=== PATIENT | male | born 2000 | race Caucasian/White ===

== ENCOUNTER 2021-07-12 00:58 | Emergency (ER) | payer SELFPAY ==
[~2021-07-12] VITALS: Ht 182.9 cm; Wt 134.0 kg
--- NOTE | 2021-07-12 01:16 | PHYS DOC ---
General Adult HPI: HPI: ".. I ve having severe.. neck spasms.. and upper back pain.. it so bad.. I cant sleep... I ve had this before.. but never this bad.." Patient is a 20 year old male who presents with upper back and neck pain. Patient localized pain to cervical and upper thoracic. Has obvious trapezius spasms. Has limited range motion of his neck because of pain. Has no midline tenderness per se. Patient denies any fever or chills. Patient denies any IV drug use. Patient denies any history of cancer. Patient denies any recent injury. 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 Patient it started yesterday acutely. Patient gives some history of may have slept wrong and developed the start of the spasm. No recent travel. No specific ill contacts. No history immunosuppression. No problems with defecation. No acute problems with urination. Review of Systems: Review of Systems: Constitutional: Denies fever or chills Eyes: Denies change in visual acuity HENT: Denies nasal congestion or sore throat. Complains of severe neck and upper back spasms Respiratory: Denies cough or shortness of breath Cardiovascular: Denies chest pain or edema GI: Denies abdominal pain, nausea, vomiting, bloody stools or diarrhea : Denies dysuria Musculoskeletal: Complains of neck and upper back spasms Integument: Denies rash Neurologic: Denies headache, focal weakness or sensory changes Endocrine: Denies polyuria or polydipsia Lymphatic: Denies swollen glands Psychiatric: Denies depression or anxiety Family History: Family History: Noncontributory to presentation Current Medications: Current Meds: See nursing for home meds Allergies: Allergies: No known drug allergies Physical Exam: PE: Constitutional: in acute distress, non-toxic appearance. [] HENT: Normocephalic, atraumatic, bilateral external ears normal, oropharynx moist, no oral exudates, nose normal. Lara Eyes: PERRLA, EOMI, conjunctiva normal, no discharge. [] Neck: Limited range of motion due to pain, marked cervical trapezius tenderness, muscle spasm , no midline tenderness, no stridor. [] Cardiovascular:Heart rate regular rhythm, no murmur [] Lungs & Thorax: Bilateral breath sounds equal apex auscultation. Some basilar crackles Abdomen: Bowel sounds normal, soft, no tenderness, no masses, no pulsatile masses. Milo obese Skin: Warm, dry, no erythema, no rash. [] Back: Upper mid back tenderness, trapezius muscle spasm, no midline tenderness. No CVA tenderness. [] Extremities: No tenderness, no cyanosis, no clubbing, ROM intact, no edema. Movement of the upper arms causes marked pain in his neck and between knees shoulder blades. Neurologic: Alert and oriented X 3, moves all extremities on request, has distal sensory,, no focal deficits noted. DTRs +2 patella and brachial. Psychologic: Affect anxious, judgement normal, mood normal. [] EKG: EKG: [] Radiology/Procedures: Radiology/Procedures: [address] [address] IMAGING REPORT Signed PATIENT: GENO ANAND ACCOUNT: [id number] : 2000 LOCATION: ER AGE: 20 SEX: M EXAM STATUS: REG ER ORD. PHYSICIAN: JOSE C MILLS MD REASON: Severe neck and upper back pain, dizziness, no trauma PROCEDURE: CT CERVICAL SPINE WO CONTRAST EXAM: Ct Cervical Spine Without Iv Contrast CLINICAL HISTORY: Reason: Severe neck and upper back pain, dizziness, no trauma / Spl. Instructions: / History: COMPARISON: None available. TECHNIQUE: Helical CT of the cervical spine was performed. Axial, coronal and sagittal reformatted images were also performed. PQRS compliance statement - One or more of the following individualized dose reduction techniques were utilized for this study: 1. Automated exposure control 2. Adjustment of the mA and/or kV according to patient size 3. Use of iterative reconstruction technique FINDINGS: No acute fracture or subluxation. 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 Vertebral body heights are preserved. Disc heights are preserved. Straightening of the normal cervical lordosis. No spondylolisthesis. IMPRESSION: No acute cervical spine fracture or subluxation. Electronically signed by: Francis Seth MD (07/12/2021 2:11 AM) [facility] DICTATED AND SIGNED BY: FRANCIS SETH MD DATE: 07/12/21204 CC: JOSE C MILLS MD; PCP,NO ~ [][place] [id number] IMAGING REPORT Signed PATIENT: GENO ANAND ACCOUNT: [id number] : 2000 LOCATION: ER AGE: 20 SEX: M EXAM STATUS: REG ER ORD. PHYSICIAN: JOSE C MILLS MD REASON: Severe neck and upper back pain, dizziness, no trauma PROCEDURE: CT THORACIC SPINE WO CONTRAST CLINICAL HISTORY:Reason: Severe neck and upper back pain, dizziness, no trauma / Spl. Instructions: / History: COMPARISON: None available. TECHNIQUE: Helical CT of the thoracic spine was performed and axial, coronal and sagittal reformatted images were generated. PQRS compliance statement - One or more of the following individualized dose reduction techniques were utilized for this study: 1. Automated exposure control 2. Adjustment of the mA and/or kV according to patient size 3. Use of iterative reconstruction technique FINDINGS: There is normal alignment of the thoracic spine. There is preservation of height of the vertebral bodies with normal bone density. The height of the intervertebral discs is maintained. IMPRESSION: No acute thoracic spine fracture or subluxation. Electronically signed by: Francis Seth MD (07/12/2021 2:12 AM) [facility] DICTATED AND SIGNED BY: FRANCIS SETH MD DATE: 07/12/21210 CC: JOSE C MILLS MD; PCP,NO ~ Heart Score: C/O Chest Pain: N/A Risk Factors: Risk Factors: DM, Current or recent (<one month) smoker, HTN, HLP, family history of CAD, obesity. Risk Scores: Score 0 - 3: 2.5% MACE over next 6 weeks - Discharge Home Score 4 - 6: 20.3% MACE over next 6 weeks - Admit for Clinical Observation Score 7 - 10: 72.7% MACE over next 6 weeks - Early Invasive Strategies Course & Med Decision Making: Course & Med Decision Making Pertinent Labs and Imaging studies reviewed. (See chart for details) Patient use massage. Patient use ice packs as needed for the next 2 to 3 days. After 3 days and no re injury may advance to moist heat. Patient take Tylenol and ibuprofen for pain. Patient may take Flexeril 10 mg up to 3 times a day for spasm. Trial of lidocaine patches. The patient may need physical therapy if this is a recurrent problem. Follow-up primary care. Return if any concerns. Impression: 1. Cervical and upper thoracic back spasm 2. Torticollis [] Dragon Disclaimer: Dragranda Disclaimer: This electronic medical record was generated, in whole or in part, using a voice recognition dictation system. Departure Departure: Referrals: PCP,NO (PCP) Scripts Cyclobenzaprine Hcl (CYCLOBENZAPRINE HCL) 10 Mg Tablet 10 MG PO tidprn for muscle spasm, #30 TAB Prov: JOSE C MILLS MD 07/12/21 Lidocaine (Lidocaine PATCH ) 1 Each Adh..patch 1 EACH TP DAILY for FOR LOCAL PAIN, #30 PATCH REMOVE AFTER 12 HOURS Prov: JOSE C MILLS MD 07/12/21 Dragon Disclaimer This chart was dictated in whole or in part using Voice Recognition software in a busy, high-work load, and often noisy Emergency Department environment. It may contain unintended and wholly unrecognized errors or omissions. JOSE C MILLS MD Jul 12, 2021 01:15
[2021-07-12] MEDS ORDERED: LIDOCAINE (700MG/PATCH) PATCH. TD SCH (02:00)
[2021-07-12] MEDS ORDERED: KETOROLAC 60 MG/2 ML VIAL. IM ONE (02:00)
[2021-07-12] MEDS ORDERED: ORPHENADRINE CITRATE 60 MG/2 ML VIAL. IM ONE (02:00)
--- NOTE | 2021-07-12 02:13 | RAD ---
EXAM: Ct Cervical Spine Without Iv Contrast CLINICAL HISTORY: Reason: Severe neck and upper back pain, dizziness, no trauma / Spl. Instructions: / History: COMPARISON: None available. TECHNIQUE: Helical CT of the cervical spine was performed. Axial, coronal and sagittal reformatted im ages were also performed. PQRS compliance statement - One or more of the following individualized dose reduction techniques wer e utilized for this study: 1. Automated exposure control 2. Adjustment of the mA and/or kV according to patient size 3. Use of iterative reconstruction technique FINDINGS: No acute fracture or subluxation. Incidentally noted congenital nonfusion of the posterior elements o f C1. Vertebral body heights are preserved. Disc heights are preserved. Straightening of the normal c ervical lordosis. No spondylolisthesis. IMPRESSION: No acute cervical spine fracture or subluxation. Electronically signed by: Francis Huerta MD (07/12/2021 2:11 AM) [facility]
--- NOTE | 2021-07-12 02:15 | RAD ---
CLINICAL HISTORY:Reason: Severe neck and upper back pain, dizziness, no trauma / Spl. Instructions: / History: COMPARISON: None available. TECHNIQUE: Helical CT of the thoracic spine was performed and axial, coronal and sagittal reformatted images were generated. PQRS compliance statement - One or more of the following individualized dose reduction techniques wer e utilized for this study: 1. Automated exposure control 2. Adjustment of the mA and/or kV according to patient size 3. Use of iterative reconstruction technique FINDINGS: There is normal alignment of the thoracic spine. There is preservation of height of the vertebral bodies with normal bone density. The height of the intervertebral discs is maintained. IMPRESSION: No acute thoracic spine fracture or subluxation. Electronically signed by: Francis Huerta MD (07/12/2021 2:12 AM) [facility]
[2021-07-12] MEDS ORDERED: CYCL10TA19 PO (03:54)
[2021-07-12] MEDS ORDERED: LIDO700A21 TP (03:54)
[2021-07-12 04:15] VITALS: BP 142/102
[2021-07-12] MEDS ORDERED: PATCH REMOVAL. MC ONE (14:00)
== END 2021-07-12 04:15 | disposition home or self-care (01) ==
LOC: ER 00:58
DX: M43.6 Torticollis (principal); M62.830 Muscle spasm of back
CPT/HCPCS: 72125; 72128; 96372; 99284; J1885; J2360